=== PATIENT | female | born 1980 | race Caucasian/White ===

== ENCOUNTER 2020-04-10 19:26 | Emergency (ER) | payer OTHER ==
[~2020-04-10] VITALS: Ht 162.6 cm; Wt 67.7 kg
[2020-04-10 19:28] VITALS: BP 152/90
--- NOTE | 2020-04-10 19:50 | NUR ---
BEE STING YESTERDAY, SWELLING AND REDNESS INCREASED TODAY, ADVISED BY PCP TO COME IN TO ER. ALIA RUIZ. REDNESS AND SWELLING NOTED, HOT TO THE TOUCH. Addendum: 04/10/20 at 1951 by KENY LEFT LOWER LEG.
[2020-04-10] MEDS ORDERED: ALPR0.5T7 PO (19:55)
[2020-04-10] MEDS ORDERED: SERT100T32 PO (19:55)
[2020-04-10] MEDS ORDERED: CEFAZOLIN 1,000 MG ONE (20:07)
--- NOTE | 2020-04-10 20:17 | NUR ---
MEDICATED PER MAR.
[2020-04-10] MEDS ORDERED: DIPH,PERTUSS(ACELL),TET VAC/PF 0.5 ML IM-VACC ONE ×2 (20:23→20:30)
[2020-04-10] MEDS ORDERED: CEFAZOLIN 1,000 MG IM ONE (20:30)
== END 2020-04-10 20:36 | disposition home or self-care (01) ==
LOC: ED 20:30
DX: L03.116 Cellulitis of left lower limb (principal); T63.441A Toxic effect of venom of bees, accidental (unintentional), initial encounter; Y93.89 Activity, other specified; Y92.009 Unspecified place in unspecified non-institutional (private) residence as the place of occurrence of the external cause; Y99.8 Other external cause status
CPT/HCPCS: 90471; 90715; 96372; 99284; J0690

== ENCOUNTER 2020-04-17 10:32 | Emergency (ER) | payer OTHER ==
[~2020-04-17] VITALS: Ht 162.6 cm; Wt 66.1 kg
[~2020-04-17 10:32] MED LIST: ALPR0.5T7 PO; SERT100T32 PO
[2020-04-17 10:33] VITALS: BP 130/79
--- NOTE | 2020-04-17 10:39 | NUR ---
PT AMBULATED TO ROOM FROM TRIAGE WITH A STEADY GAIT. ACCOMPANIED BY ANOTHER ADULT. IWILL MONITOR AND TREAT ORDERED, WELL PRN WHILE AWAITING A PLAN OF CARE FROM ERP.
--- NOTE | 2020-04-17 10:50 | NUR ---
NAIVAL-Sera IS AT THE BEDSIDE FOR ASSESSMENT
[2020-04-17] MEDS ORDERED: CEFTRIAXONE PMX 1GM/50ML 50 ML IV ONE (11:00)
[2020-04-17] MEDS ORDERED: DEXAMETHASONE 4 MG/ML, 5ML IM ONE (11:00)
[2020-04-17] MEDS ORDERED: METRONIDAZOLE PMX 500MG/100ML 100 ML IV ONE (11:00)
[2020-04-17] MEDS ORDERED: DEXAMETHASONE 4 MG/ML, 5ML ONE (11:01)
== END 2020-04-17 11:32 | disposition home or self-care (01) ==
LOC: ED 11:15
DX: S90.464A Insect bite (nonvenomous), right lesser toe(s), initial encounter (principal); W57.XXXA Bitten or stung by nonvenomous insect and other nonvenomous arthropods, initial encounter; Y93.89 Activity, other specified; Y92.89 Other specified places as the place of occurrence of the external cause; Y99.8 Other external cause status
CPT/HCPCS: 96372; 99283; J1100

== ENCOUNTER 2020-05-29 12:15 | Outpatient (CLI) | payer OTHER | END 2020-05-29 23:59 | disposition home or self-care (01) | LOC: CFH 12:15 | PROVIDERS: ATTEND Nurse Practitioner | DX: Z80.3 Family history of malignant neoplasm of breast (principal) | CPT/HCPCS: 76642; 77066; G0279 ==